=== PATIENT | female | born 1975 | race Caucasian/White ===

== ENCOUNTER 2018-07-13 19:46 | Inpatient (IN) | payer BC, SELFPAY ==
[2018-07-13 19:49] VITALS: BP 161/91; PULSE 128; PULSE 130; RESP 19; TEMP 36.7; O2SAT 95; BMI 20.5
[2018-07-13 19:53] VITALS: BP 161/91; PULSE 130; RESP 19; TEMP 36.7; O2SAT 95
--- NOTE | 2018-07-13 21:10 | CT_ITS ---
STUDY: CT SOFT TISSUE NECK WITH CONTRAST REASON FOR EXAM: Female, 43 years old. Difficulty swallowing. RADIATION DOSAGE (If Supplied By Facility): CTDIvol = ( 16.53 ) mGy, DLP = ( 499.58 ) mGycm TECHNIQUE: The patient was scanned in a multi-detector CT scanner. High resolution transaxial imaging was performed following intravenous administration of Isovue 300 100ML IV. Sagittal and coronal images were reconstructed. Individualized dose optimization techniques were used for this CT. COMPARISON: None. FINDINGS: Normal bilateral parotid glands. Normal bilateral tank pumper panelboard spaces. Normal bilateral parapharyngeal spaces. Normal bilateral carotid spaces. Normal bilateral sublingual and submandibular glands and spaces. Normal visualized nasopharynx. Normal retropharyngeal space. Normal perivertebral space. There is prominence of the right faucial tonsil, which contains a 1.1 x 0.66 x 1.1 cm fluid density mass. The visualized tongue, tongue base and oropharynx are normal. The visualized cervical lymph nodes (levels I-) are within normal size limits, and maintain normal morphology. There is no abnormal contrast enhancement. There is soft tissue swelling extending downward from the right tonsil into the periglottic soft tissues and into the epiglottis which appears enlarged and markedly thickened. There is low-attenuation extending downward into the soft tissues in the second abscess cannot be ruled out. Normal left vallecula. The hypopharynx is displaced to the left. The left pre-epiglottic and paraglottic adipose spaces are normal. There is soft tissue swelling along the right para glottic soft tissues down to and involving the anterior right area epiglottic fold. Normal visualized left aryepiglottic folds, bilateral vocal cords, and arytenoid-cricoid articulations. Normal left piriform sinus. Normal subglottic trachea. Normal bilateral lobes of the thyroid gland. Normal visualized pulmonary apices. Normal visualized paranasal sinuses. Normal visualized cervical spine. CT/Soft Tissue Neck WITH Contrast IMPRESSION: Marked soft tissue swelling extending from the right tonsil downward to the right false cord with enlargement of the epiglottis and narrowing of both the pharynx and hypopharynx. There are several low-attenuation foci within this area of swelling suggesting focal abscesses. N.B. : The above information has been verbally conveyed by Hayden Howard DO to Ederreid Mc on 07/13/2018 22:45:31 (ET). Electronically Signed: Hayden Howard DO at 22:46 EDT Tel [phone], Service support ,
[2018-07-13 21:30] LABS: Absolute Lymphocyte Count 1.38 X10^3/ul (0.83-4.51); Absolute Neutrophil Count 16.9 X10^3/uL (2.0-7.7); Basophil# 0.02 X10^3/uL; Basophil% 0.1 % (0-1); Eosinophil# 0.02 X10^3/uL; Eosinophils% 0.1 % (0-5); Hematocrit 41.8 % (37-47); Hemoglobin 14.2 g/dl (12.0-15.0); Lymphocyte # 1.38 X10^3/ul (4.0); Mean Corpuscular Hgb 31.4 pg (27.0-32.0); Mean Corpuscular Volume 92.5 fL (81-99); Mean Platelet Vol. 9.4 fl (6.2-12.0); Monocyte% 6.1 % (0-10); Neutrophil # 16.92 X10^3/uL (2.7-7.7); Neutrophil % 86.4 % (47-70); Platelet Count 219 K/mm3 (150-450); RBC Distribution Width CV 12.5 % (11.6-14.6); RBC Distribution Width SD 41.7 fl (35.1-43.9); Red Blood Count 4.52 M/mm3 (4.2-5.4); White Blood Count 19.6 K/mm3 (4.4-11.0)
[2018-07-13 21:31] LABS: POSITIVE COUNT NO; POSITIVE DIFFERENTIAL NO; POSITIVE MORPHOLOGY NO
[2018-07-13 21:43] LABS: Anion Gap 7 (5-15); BUN 11 mg/dL (7-18); BUN/Creat Ratio 16.3 RATIO (10-20); Chloride 105 mmol/L (98-107); Creatinine, Serum 0.67 mg/dL (0.55-1.02); EST Glomerular Filtration Rate 101 mL/min (>60); Est Glom Filt Rate - Afr Amer 122 mL/min (>60); Estimated Creatinine Clearance 108.97 ml/min; Glucose 97 mg/dL (74-106); Potassium 3.5 mmol/L (3.5-5.1); Sodium Level 138 mmol/L (136-145)
[2018-07-13] MEDS: 0.9% Normal Saline 1,000 ML 1000 ML IV (23:00)
[2018-07-13 23:31] VITALS: BP 146/89; PULSE 106; RESP 18; O2SAT 98
--- NOTE | 2018-07-13 23:57 | ED.VISSUMM ---
- ER Visit Summary Date of Service: 07/13/18 Chief Complaint: Sore throat History of Present Illness: The patient is a 43 F who presents with a sore throat that began yesterday. Patient states her pain is worse with swallowing. Patient admits to subjective chills but denies any fevers. Patient admits to some myalgias. Patient denies any headache, sinus pressure, nausea, vomiting, chest pain, shortness of breath. Patient went to an urgent care tonight and was referred to the emergency department for possible peritonsillar abscess. Physical Examination: Vital signs are stable except for mild tachycardia of 128. Patient is afebrile. Patient is in no acute distress. Oral mucosa is pink and moist. Oropharynx is mildly erythematous on the right. The uvula is midline. Airway is patent. Neck is supple. There is some right anterior cervical lymphadenopathy and tenderness. Heart was regular and tachycardic. Lungs are clear and equal bilaterally. Abdomen is soft nontender. Cranial nerves II through XII are intact. There are no focal motor or sensory deficits noted. Test Results: CBC showed leukocytosis of 19. Metabolic profile was within normal limits. CT scan of the soft tissue neck was obtained there is a right peritonsillar abscess with extension into the epiglottic folds and into the epiglottis. Emergency Department Course and Treatment: Patient was given IV fluids, Decadron, and Unasyn here. Case was discussed with Dr. Murphy he will be willing to see the patient in consultation. Case was discussed with Dr. Sanchez. She will admit the patient. Patient understood and was agreeable with the plan. All questions were answered. Disposition: Admit to hospital Impression: Peritonsillar abscess This note was generated with [employer] dictation software. It may contain incorrect words, spelling, and punctuation that were not noted in review of the chart prior to signing ED Disposition - Plan for ED Patient: Disposition: Acute Care Hospital [facility] Diagnosis: Peritonsillar abscess Referrals: Care Physician,No Primary [Primary Care Provider] -
--- NOTE | 2018-07-13 23:59 | HP.PCM_ITS ---
Problem List (1) Sepsis Status: Acute Qualifiers: Sepsis type: sepsis due to unspecified organism Qualified Code(s): A41.9 - Sepsis, unspecified organism (2) Peritonsillar abscess Status: Acute (3) Tobacco use Status: Chronic History of Present Illness Date of Admission: 07/13/18 Chief Complaint: Sore throat, dysphagia, fever, chills The patient is a 43 y/o F w/ PMHx: Tobacco use who presents to the [facility] ED on 07/13/18 with history of 48-hour history of progressively worsening sore throat, worsening dysphagia with body aches as well as subjective fevers and chills with decreased oral intake secondary prompting evaluation in urgent care and following recommendation to present to the ED secondary to concerns for possible tonsillitis. Workup in the ED included T 98, heart rate 128, respiratory rate 19, BP 161/91, 95% on room air, CBC with WC 19.6, hemoglobin 14.2, platelet 219 with left shift, BMP not market appearing, CT soft tissue neck with marked soft tissue swelling extending from the right tonsil downward to the false right cord with enlargement of the epiglottis and narrowing of both the pharynx and hyp opharynx with several low-attenuation foci within this area of swelling suggesting focal abscesses. In the ED patient administered Unasyn, Decadron, normal saline. ED discussed patient with ENT, Dr. Ly who noted he would evaluate the patient in the a.m. 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 Paternal History Items: Diabetes Review of Systems Constitutional: Reports: Anorexia, Chills, Fever, Malaise, Weakness, Fatigue. Denies: Weight Change HEENT: Reports: Difficulty Swallowing, Dysphasia, Sore Throat. Denies: Head Aches, Sinus Congestion, Sinus Drainage Cardiovascular: Denies: Chest Pain, Palpitations Respiratory: Denies: Cough, Shortness of breath at rest, Sputum production Gastrointestinal: Denies: Abdominal Pain, Nausea, Vomiting Genitourinary: Denies: Dysuria Musculoskeletal: Reports: Joint Pain, Muscle pain. Denies: Joint Tenderness Skin: Denies: Rash, Wounds Neurological: Denies: Numbness, Tingling, Focal weakness Psychiatric: Denies: Anxiety, Depression, Homicidal Ideations, Suicidal Ideations Hematologic/ Lymphatic: Denies: Easy Bruising, Easy Bleeding VTE Information - Inpt Only VTE Present on Admission: No VTE Mechan Device Prophylaxis: SCD's VTE Pharm Prophylaxis ordered?: No Reason prophylaxis not ordered:: Treatment Not Indicated - Holding for possible a.m. OR. Patient Problems: Active and Suspected Problems Peritonsillar abscess (Acute) Sepsis (Acute) Subjective: Seated upright in the ED bed, no acute distress, notes throat is mildly improved since initial presentation with recent ED regimen. Objective: Physical Examination: General: awake, alert, oriented x 3 and cooperative, seated upright in the ED bed in no apparent distress, fatigued appearance. Skin: normal color, turgor, no icterus, cyanosis. HEENT: AT/NC, EOMI, PERRLA, dry MM, oropharynx mildly erythematous with uvula midline and airway patent with cervical lymphadenopathy, no carotid bruits or JVD noted. Lungs: CTA bilaterally, moderate effort, mild decrease BL bases, no rales, ronchi or wheezing. Heart: Widely tachycardic with regular rhythm; no gallop, rub audible. Abdomen: soft, NTTP, ND, normal BS, no HSM. Extremities: no cyanosis, clubbing, or edema. Neurological: patient awake, alert, oriented x 3; cognitive function intact; pupils equally reactive to light and accomodation; cranial nerves II-XII grossly normal, moving all 4 extremities, no focal deficits, strength moderately to severely globally decreased secondary to acute presentation Psychiatric: affect appears fatigued, no acute evidence of depressive or anxiety feelings. - Physical Exam Vital Signs Temp Pulse Resp BP Pulse Ox 98.0 F 106 H 18 146/89 H 98 07/13/18 19:53 07/13/18 23:31 07/13/18 23:31 07/13/18 23:31 07/13/18 23:31 Oxygen Delivery Method Room Air Weight: 143 lb 8.335 oz Body Mass Index (BMI) 20.5 Laboratory Tests Past 24 Hrs 07/13/18 07/13/18 21:20 21:20 WBC 19.6 H RBC 4.52 Hgb 14.2 Hct 41.8 MCV 92.5 MCH 31.4 MCHC 34.0 RDW 12.5 RDW Differential 41.7 Plt Count 219 MPV 9.4 Immature Gran % (Auto) 0.300 Neut % (Auto) 86.4 H Lymph % (Auto) 7.0 L [place] % (Auto) 6.1 Eos % (Auto) 0.1 Baso % (Auto) 0.1 Absolute Neuts (auto) 16.9 H Absolute Lymphs (auto) 1.38 Total Counted Not Reportable Sodium 138 Potassium 3.5 Chloride 105 Carbon Dioxide 26.0 Anion Gap 7 BUN 11 Creatinine 0.67 Estim Creat Clear Calc 108.97 Est GFR (MDRD) Af Amer 122 Est GFR (MDRD) Non-Af 101 BUN/Creatinine Ratio 16.3 Glucose 97 Calcium 9.0 Assessment/Plan All Active Problems Peritonsillar abscess (Acute) Sepsis (Acute) The patient is a 43 y/o F w/ PMHx: Tobacco use who presents to the [facility] ED on 07/13/18 with history of 48-hour history of progressively worsening sore throat, worsening dysphagia with body aches as well as subjective fevers and chills with decreased oral intake secondary prompting evaluation in urgent care and following recommendation to present to the ED secondary to concerns for possible tonsillitis. (1) Acute sepsis secondary to acute peritonsillar abscess with pharynx and hypopharynx narrowing: orkup in the ED included T 98, heart rate 128, respiratory rate 19, BP 161/91, 95% on room air, CBC with WBC 19.6, hemoglobin 14.2, platelet 219 with left shift, BMP not market appearing, CT soft tissue neck with marked soft tissue swelling extending from the right tonsil downward to the false right cord with enlargement of the epiglottis and narrowing of both the pharynx and hypopharynx with several low-attenuation foci within this area of swelling suggesting focal abscesses. Given notable airway findings to be cautious will admit to the ICU, maintain n.p.o. status, continue aggressive hydration, IV PPI, continue Decadron regimen, continue IV Unasyn as well as IV vancomycin, pending ENT evaluation in a.m., PRN pain and antiemetic regimen, lactic acid requested and pending. (2) Tobacco Abuse: Encouraged cessation, inpatient consultation per RT, NR if desired. (3) GERD: Famotidine. (4) DVT prophylaxis: SCDs, chemoprophylaxis given planned a.m. possible operative intervention needs. Code Visit Inpatient E&M: 08323 Init Hosp L3
[2018-07-14] VITALS (23 sets, daily range): BP systolic 100–147; BP diastolic 54–99; PULSE 83–116; RESP 11–24; TEMP 36.6–37.1; O2SAT 96–98; BMI 20.3; BMI 20.4
--- NOTE | 2018-07-14 00:01 | ED.DCSUM_ITS ---
- ER Visit Summary Date of Service: 07/13/18 Chief Complaint: Sore throat History of Present Illness: The patient is a 43 F who presents with a sore throat that began yesterday. Patient states her pain is worse with swallowing. Patient admits to subjective chills but denies any fevers. Patient admits to some myalgias. Patient denies any headache, sinus pressure, nausea, vomiting, chest pain, shortness of breath. Patient went to an urgent care tonight and was referred to the emergency department for possible peritonsillar abscess. Physical Examination: Vital signs are stable except for mild tachycardia of 128. Patient is afebrile. Patient is in no acute distress. Oral mucosa is pink and moist. Oropharynx is mildly erythematous on the right. The uvula is midline. Airway is patent. Neck is supple. There is some right anterior cervical lymphadenopathy and tenderness. Heart was regular and tachycardic. Lungs are clear and equal bilaterally. Abdomen is soft nontender. Cranial nerves II through XII are intact. There are no focal motor or sensory deficits noted. Test Results: CBC showed leukocytosis of 19. Metabolic profile was within normal limits. CT scan of the soft tissue neck was obtained there is a right peritonsillar abscess with extension into the epiglottic folds and into the epiglottis. Emergency Department Course and Treatment: Patient was given IV fluids, Decadron, and Unasyn here. Case was discussed with Dr. Murphy he will be willing to see the patient in consultation. Case was discussed with Dr. Sanchez. She will admit the patient. Patient understood and was agreeable with the plan. All questions were answered. Disposition: Admit to hospital Impression: Peritonsillar abscess This note was generated with [employer] dictation software. It may contain incorrect words, spelling, and punctuation that were not noted in review of the chart prior to signing ED Disposition - Plan for ED Patient: Disposition: Acute Care Hospital [facility] Diagnosis: Peritonsillar abscess Referrals: Care Physician,No Primary [Primary Care Provider] -
--- NOTE | 2018-07-14 00:39 | ED.RN ---
QUESTIONED DR BLANK REGKOSTASING A SEPTIC WORK UP AND HE STATED SHE DID NOT NEED IT.
[2018-07-14 01:38] LABS: International Normalized Ratio 1.1; Partial Thromboplast Time 25.8 Seconds (24.1-36.2); Prothrombin Time (Protime)PT. 13.6 SECONDS (11.7-14.9)
[2018-07-14 01:52] LABS: Lactic Acid 0.7 mmol/L (0.4-2.0)
[2018-07-14] MEDS: HYDROcodone Bitartrate/Apap 5/325 Tablet PO ×2 (02:06→08:31)
[2018-07-14] MEDS: 0.9% Normal Saline 1,000 ML 150 ML IV (02:07)
[2018-07-14] MEDS: 0.9% NaCl Peripheral Flush Adult/Peds IV ×4 (02:07→22:52)
[2018-07-14] MEDS: Vancomycin IV 1,000 MG/200 ML BAG 200 MG IV (02:07)
--- NOTE | 2018-07-14 02:30 | PCM.RX.CS ---
Consult Pharmacy has been consulted to manage selected antiobiotic: Vancomycin Type of Consult: New start Labs: Sodium 138 mmol/L (136-145) 07/13/18 21:20 Potassium 3.5 mmol/L (3.5-5.1) 07/13/18 21:20 Chloride 105 mmol/L (98-107) 07/13/18 21:20 Carbon Dioxide 26.0 mmol/L (21.0-32.0) 07/13/18 21:20 Anion Gap 7 (5-15) 07/13/18 21:20 BUN 11 mg/dL (7-18) 07/13/18 21:20 Creatinine 0.67 mg/dL (0.55-1.02) 07/13/18 21:20 Est GFR (MDRD) Af Amer 122 mL/min (>60) 07/13/18 21:20 Est GFR (MDRD) Non-Af 101 mL/min (>60) 07/13/18 21:20 BUN/Creatinine Ratio 16.3 RATIO (10-20) 07/13/18 21:20 Glucose 97 mg/dL (74-106) 07/13/18 21:20 Goal Trough: 10-15 mcg/mL Pharmacy Plan for Drug Dosing: Pharmacy Service will continue to monitor and adjust dosing as required. Medications Vancomycin HCl (Vancomycin) 1,000 mg in 200 mls @ 200 mls/hr IV X1 ONE Stop: 07/14/18 02:59 Last Admin: 07/14/18 02:07 Dose: 200 mls/hr Vancomycin HCl (Vancomycin) 1,000 mg in 200 mls @ 200 mls/hr IV Q12H MAIRA Follow-Up Labs: Trough Vancomycin Labs to be done on [date and time ordered]: 09/14 @ 1400
[2018-07-14 05:33] LABS: Absolute Lymphocyte Count 0.74 X10^3/ul (0.83-4.51); Basophil# 0.01 X10^3/uL; Hemoglobin 12.5 g/dl (12.0-15.0); Lymphocyte # 0.74 X10^3/ul (4.0); Mean Corp Hgb Conc 33.8 g/gl (32-36); Mean Corpuscular Hgb 31.3 pg (27.0-32.0); Mean Corpuscular Volume 92.7 fL (81-99); Mean Platelet Vol. 9.7 fl (6.2-12.0); Monocyte# 0.66 X10^3/uL; Monocyte% 2.7 % (0-10); Neutrophil # 22.95 X10^3/uL (2.7-7.7); Neutrophil % 93.8 % (47-70); Platelet Count 202 K/mm3 (150-450); RBC Distribution Width CV 12.4 % (11.6-14.6); RBC Distribution Width SD 41.5 fl (35.1-43.9); Red Blood Count 3.99 M/mm3 (4.2-5.4); White Blood Count 24.5 K/mm3 (4.4-11.0)
[2018-07-14 05:35] LABS: Anion Gap 8 (5-15); BUN 8 mg/dL (7-18); BUN/Creat Ratio 14.7 RATIO (10-20); Calcium,Total 7.8 mg/dL (8.5-10.1); Chloride 109 mmol/L (98-107); Creatinine, Serum 0.54 mg/dL (0.55-1.02); EST Glomerular Filtration Rate 128 mL/min (>60); Est Glom Filt Rate - Afr Amer 155 mL/min (>60); Estimated Creatinine Clearance 133.75 ml/min; Glucose 134 mg/dL (74-106); Potassium 3.7 mmol/L (3.5-5.1); Sodium Level 140 mmol/L (136-145)
[2018-07-14 05:37] LABS: Differential Indicated SCAN CRITERIA MET; POSITIVE COUNT NO; POSITIVE DIFFERENTIAL YES; POSITIVE MORPHOLOGY NO
--- NOTE | 2018-07-14 07:09 | PCM.CON.CC ---
Reason for Consult Date of Consultation: 07/14/18 Reason for Consultation: Right peritonsillar abscess History of Present Illness: The patient is a 43-year-old female, with a history as outlined below, who presented to the emergency department on July 13 with complaints of odynophagia. On presentation to the emergency department, the patient was noted to be afebrile, tachycardic and hypertensive. Laboratory evaluation revealed an elevated white blood cell count to 20,000. Coagulation profile was within normal limits. Chemistry profile was unremarkable. Lactic acid was within normal limits. CT soft tissue neck revealed marked soft tissue swelling extending from the right tonsil downward to the right false cord with enlargement of the epiglottis and narrowing of both the pharynx and hypopharynx. The patient was given supplemental IV fluids, Decadron and antibiotics. ENT was contacted and will evaluate the patient. She was subsequently admitted to the medical intensive care unit for close monitoring. This morning, the patient reported the sensation of foul tasting fluid in the back of her throat, raising the suspicion that the patient's abscess had ruptured. The patient was evaluated by ENT at the bedside this morning. They indicated no concerns over the patient's airway. They were okay with us advancing her diet. 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 Paternal History Items: Diabetes Review of Systems Constitutional: Denies: Chills, Fever Eyes: Denies: Blurred vision, Double vision HEENT: Reports: Difficulty Swallowing, Sore Throat Cardiovascular: Denies: Chest Pain, Palpitations Respiratory: Denies: Cough, Shortness of breath at rest, Sputum production Gastrointestinal: Denies: Abdominal Pain, Nausea, Vomiting Genitourinary: Denies: Dysuria Musculoskeletal: Denies: Joint Pain, Joint Tenderness Skin: Denies: Rash, Wounds Neurological: Denies: Numbness, Tingling, Focal weakness Psychiatric: Denies: Anxiety, Depression, Homicidal Ideations, Suicidal Ideations Hematologic/ Lymphatic: Denies: Easy Bruising, Easy Bleeding Patient Problems: Active and Suspected Problems Peritonsillar abscess (Acute) Sepsis (Acute) Objective: The patient's most recent lab work, culture data and imaging studies have all been personally reviewed. - Physical Exam General: Alert, Oriented x3, Cooperative, No apparent distress HEENT: Atraumatic, PERRLA, Normocephalic, - - Patent airway Oral: No Gingival or Mucosal Lesions/ Ulcerations Neck: Supple, No Nodes, Trachea Midline Lungs: Normal air movement, No rhonchi, No wheeze, No rales Cardiovascular: Regular rate, Regular Rhythm, Normal S1, Normal S2, No murmurs Abdomen: Bowel Sounds Present, Soft, Non Tender Extremities: No clubbing, No cyanosis, No edema Skin: No breakdown Musculoskeletal: No Tenderness to Palpation of Joints or Extremities, No Muscle Wasting Neurological: Neuro grossly intact Psych/Mental Status: Normal Affect, Appropriate Vital Signs Temp Pulse Resp BP Pulse Ox 36.6 C 89 24 H 105/61 97 07/14/18 04:00 07/14/18 06:00 07/14/18 06:00 07/14/18 06:00 07/14/18 06:00 Oxygen Delivery Method Room Air Weight: 141 lb 15.643 oz Body Mass Index (BMI) 20.3 Intake and Output for Last 24 Hours 07/12/18 07/13/18 07/14/18 23:59 23:59 23:59 Intake Total 870 / 870 Output Total 450 / 450 Balance 420 / 420 Laboratory Tests Past 24 Hrs 07/13/18 07/13/18 07/14/18 21:20 21:20 01:20 WBC 19.6 H RBC 4.52 Hgb 14.2 Hct 41.8 MCV 92.5 MCH 31.4 MCHC 34.0 RDW 12.5 RDW Differential 41.7 Plt Count 219 MPV 9.4 Immature Gran % (Auto) 0.300 Neut % (Auto) 86.4 H Lymph % (Auto) 7.0 L [place] % (Auto) 6.1 Eos % (Auto) 0.1 Baso % (Auto) 0.1 Absolute Neuts (auto) 16.9 H Absolute Lymphs (auto) 1.38 Total Counted Not Reportable PT 13.6 INR 1.1 APTT 25.8 Sodium 138 Potassium 3.5 Chloride 105 Carbon Dioxide 26.0 Anion Gap 7 BUN 11 Creatinine 0.67 Estim Creat Clear Calc 108.97 Est GFR (MDRD) Af Amer 122 Est GFR (MDRD) Non-Af 101 BUN/Creatinine Ratio 16.3 Glucose 97 Lactic Acid Calcium 9.0 07/14/18 07/14/18 07/14/18 01:20 05:10 05:10 WBC 24.5 H RBC 3.99 L Hgb 12.5 Hct 37.0 MCV 92.7 MCH 31.3 MCHC 33.8 RDW 12.4 RDW Differential 41.5 Plt Count 202 MPV 9.7 Immature Gran % (Auto) 0.500 Neut % (Auto) 93.8 H Lymph % (Auto) 3.0 L [place] % (Auto) 2.7 Eos % (Auto) 0.0 Baso % (Auto) 0.0 Absolute Neuts (auto) 23.0 H Absolute Lymphs (auto) 0.74 L Total Counted Not Reportable PT INR APTT Sodium 140 Potassium 3.7 Chloride 109 H Carbon Dioxide 23.0 Anion Gap 8 BUN 8 Creatinine 0.54 L Estim Creat Clear Calc 133.75 Est GFR (MDRD) Af Amer 155 Est GFR (MDRD) Non-Af 128 BUN/Creatinine Ratio 14.7 Glucose 134 H Lactic Acid 0.7 Calcium 7.8 L Clinical Impression(s) from Imaging Studies Soft Tissue Neck CT 07/13/18 21:10 IMPRESSION: Marked soft tissue swelling extending from the right tonsil downward to the right false cord with enlargement of the epiglottis and narrowing of both the pharynx and hypopharynx. There are several low-attenuation foci within this area of swelling suggesting focal abscesses. N.B. : The above information has been verbally conveyed by Hayden Howard DO to Eder Mc on 07/13/2018 22:45:31 (ET). Electronically Signed: Hayden Howard DO at 22:46 EDT Tel [phone], Service support , ADDENDUM: 07/13/18 4125 IMPRESSION: Marked soft tissue swelling extending from the right tonsil downward to the right false cord with enlargement of the epiglottis and narrowing of both the pharynx and hypopharynx. There are several low-attenuation foci within this area of swelling suggesting focal abscesses. N.B. : The above information has been verbally conveyed by Hayden Howard DO to Eder Mc on 07/13/2018 22:45:31 (ET). Electronically Signed: Hayden Howard DO at 22:46 EDT Tel [phone], Service support , Assessment/Plan Active and Suspected Problems Peritonsillar abscess (Acute) Sepsis (Acute) RECOMMENDATIONS: 1. The patient can likely be transitioned to p.o. clindamycin 2. Continue current pain control regimen. IMPRESSIONS: 1. Sepsis secondary to peritonsillar abscess The patient has been clinically stable overnight. The patient did receive supplemental IV fluids and antibiotics. She was never hemodynamically unstable. The patient's airway is intact and patent. ENT is following. The patient's antibiotic course can likely be transitioned to p.o. clindamycin. Diet can be advanced per ENT. 2. History of tobacco dependency/GERD Complicates care, management, recovery and prognosis. Nicotine replacement therapy can be offered while the patient is admitted to the hospital. This note was generated with [employer] dictation software. It may contain incorrect words, spelling, and punctuation that were not noted in checking the note before signing. DISPOSITION: The patient is medically stable from my perspective for transfer out of the intensive care unit. Given her lack of ICU needs, will sign off. Please call with any additional questions. Code Visit Inpatient E&M: 91904 Init Hosp L2
--- NOTE | 2018-07-14 07:17 | CON.PCM_ITS ---
Reason for Consult Date of Consultation: 07/14/18 Reason for Consultation: Right peritonsillar abscess History of Present Illness: The patient is a 43-year-old female, with a history as outlined below, who presented to the emergency department on July 13 with complaints of odynophagia. On presentation to the emergency department, the patient was noted to be afebrile, tachycardic and hypertensive. Laboratory evaluation revealed an elevated white blood cell count to 20,000. Coagulation profile was within normal limits. Chemistry profile was unremarkable. Lactic acid was within normal limits. CT soft tissue neck revealed marked soft tissue swelling extending from the right tonsil downward to the right false cord with enlargement of the epiglottis and narrowing of both the pharynx and hypopharynx. The patient was given supplemental IV fluids, Decadron and antibiotics. ENT was contacted and will evaluate the patient. She was subsequently admitted to the medical intensive care unit for close monitoring. This morning, the patient reported the sensation of foul tasting fluid in the back of her throat, raising the suspicion that the patient's abscess had ruptured. The patient was evaluated by ENT at the bedside this morning. They indicated no concerns over the patient's airway. They were okay with us advancing her diet. 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 Paternal History Items: Diabetes Review of Systems Constitutional: Denies: Chills, Fever Eyes: Denies: Blurred vision, Double vision HEENT: Reports: Difficulty Swallowing, Sore Throat Cardiovascular: Denies: Chest Pain, Palpitations Respiratory: Denies: Cough, Shortness of breath at rest, Sputum production Gastrointestinal: Denies: Abdominal Pain, Nausea, Vomiting Genitourinary: Denies: Dysuria Musculoskeletal: Denies: Joint Pain, Joint Tenderness Skin: Denies: Rash, Wounds Neurological: Denies: Numbness, Tingling, Focal weakness Psychiatric: Denies: Anxiety, Depression, Homicidal Ideations, Suicidal Ideations Hematologic/ Lymphatic: Denies: Easy Bruising, Easy Bleeding Patient Problems: Active and Suspected Problems Peritonsillar abscess (Acute) Sepsis (Acute) Objective: The patient's most recent lab work, culture data and imaging studies have all been personally reviewed. - Physical Exam General: Alert, Oriented x3, Cooperative, No apparent distress HEENT: Atraumatic, PERRLA, Normocephalic, - - Patent airway Oral: No Gingival or Mucosal Lesions/ Ulcerations Neck: Supple, No Nodes, Trachea Midline Lungs: Normal air movement, No rhonchi, No wheeze, No rales Cardiovascular: Regular rate, Regular Rhythm, Normal S1, Normal S2, No murmurs Abdomen: Bowel Sounds Present, Soft, Non Tender Extremities: No clubbing, No cyanosis, No edema Skin: No breakdown Musculoskeletal: No Tenderness to Palpation of Joints or Extremities, No Muscle Wasting Neurological: Neuro grossly intact Psych/Mental Status: Normal Affect, Appropriate Vital Signs Temp Pulse Resp BP Pulse Ox 36.6 C 89 24 H 105/61 97 07/14/18 04:00 07/14/18 06:00 07/14/18 06:00 07/14/18 06:00 07/14/18 06:00 Oxygen Delivery Method Room Air Weight: 141 lb 15.643 oz Body Mass Index (BMI) 20.3 Intake and Output for Last 24 Hours 07/12/18 07/13/18 07/14/18 23:59 23:59 23:59 Intake Total 870 / 870 Output Total 450 / 450 Balance 420 / 420 Laboratory Tests Past 24 Hrs 07/13/18 07/13/18 07/14/18 21:20 21:20 01:20 WBC 19.6 H RBC 4.52 Hgb 14.2 Hct 41.8 MCV 92.5 MCH 31.4 MCHC 34.0 RDW 12.5 RDW Differential 41.7 Plt Count 219 MPV 9.4 Immature Gran % (Auto) 0.300 Neut % (Auto) 86.4 H Lymph % (Auto) 7.0 L [place] % (Auto) 6.1 Eos % (Auto) 0.1 Baso % (Auto) 0.1 Absolute Neuts (auto) 16.9 H Absolute Lymphs (auto) 1.38 Total Counted Not Reportable PT 13.6 INR 1.1 APTT 25.8 Sodium 138 Potassium 3.5 Chloride 105 Carbon Dioxide 26.0 Anion Gap 7 BUN 11 Creatinine 0.67 Estim Creat Clear Calc 108.97 Est GFR (MDRD) Af Amer 122 Est GFR (MDRD) Non-Af 101 BUN/Creatinine Ratio 16.3 Glucose 97 Lactic Acid Calcium 9.0 07/14/18 07/14/18 07/14/18 01:20 05:10 05:10 WBC 24.5 H RBC 3.99 L Hgb 12.5 Hct 37.0 MCV 92.7 MCH 31.3 MCHC 33.8 RDW 12.4 RDW Differential 41.5 Plt Count 202 MPV 9.7 Immature Gran % (Auto) 0.500 Neut % (Auto) 93.8 H Lymph % (Auto) 3.0 L [place] % (Auto) 2.7 Eos % (Auto) 0.0 Baso % (Auto) 0.0 Absolute Neuts (auto) 23.0 H Absolute Lymphs (auto) 0.74 L Total Counted Not Reportable PT INR APTT Sodium 140 Potassium 3.7 Chloride 109 H Carbon Dioxide 23.0 Anion Gap 8 BUN 8 Creatinine 0.54 L Estim Creat Clear Calc 133.75 Est GFR (MDRD) Af Amer 155 Est GFR (MDRD) Non-Af 128 BUN/Creatinine Ratio 14.7 Glucose 134 H Lactic Acid 0.7 Calcium 7.8 L Clinical Impression(s) from Imaging Studies Soft Tissue Neck CT 07/13/18 21:10 IMPRESSION: Marked soft tissue swelling extending from the right tonsil downward to the right false cord with enlargement of the epiglottis and narrowing of both the pharynx and hypopharynx. There are several low-attenuation foci within this area of swelling suggesting focal abscesses. N.B. : The above information has been verbally conveyed by Hayden Howard DO to Eder Mc on 07/13/2018 22:45:31 (ET). Electronically Signed: Hayden Howard DO at 22:46 EDT Tel [phone], Service support , ADDENDUM: 07/13/18 [id number] IMPRESSION: Marked soft tissue swelling extending from the right tonsil downward to the right false cord with enlargement of the epiglottis and narrowing of both the pharynx and hypopharynx. There are several low-attenuation foci within this area of swelling suggesting focal abscesses. N.B. : The above information has been verbally conveyed by Hayden Howard DO to Eder Mc on 07/13/2018 22:45:31 (ET). Electronically Signed: Hayden Howard DO at 22:46 EDT Tel [phone], Service support , Assessment/Plan Active and Suspected Problems Peritonsillar abscess (Acute) Sepsis (Acute) RECOMMENDATIONS: 1. The patient can likely be transitioned to p.o. clindamycin 2. Continue current pain control regimen. IMPRESSIONS: 1. Sepsis secondary to peritonsillar abscess The patient has been clinically stable overnight. The patient did receive supplemental IV fluids and antibiotics. She was never hemodynamically unstable. The patient's airway is intact and patent. ENT is following. The patient's antibiotic course can likely be transitioned to p.o. clindamycin. Diet can be advanced per ENT. 2. History of tobacco dependency/GERD Complicates care, management, recovery and prognosis. Nicotine replacement therapy can be offered while the patient is admitted to the hospital. This note was generated with [employer] dictation software. It may contain incorrect words, spelling, and punctuation that were not noted in checking the note before signing. DISPOSITION: The patient is medically stable from my perspective for transfer out of the intensive care unit. Given her lack of ICU needs, will sign off. Please call with any additional questions. Code Visit Inpatient E&M: 11342 Init Hosp L2
--- NOTE | 2018-07-14 07:53 | PCM.PROGNOTE ---
Patient Problems: Active and Suspected Problems Peritonsillar abscess (Acute) Sepsis (Acute) Subjective: The patient is a 43-year-old female with a past medical history of tobacco dependence who presented to the emergency department at [facility] on 07/13/2018 complaining of a 48-hour history of worsening sore throat, dysphagia, myalgias, fevers, chills and poor appetite. She went to an urgent care and was advised to go to the emergency department due to concern for possible tonsillitis. Vital signs in the emergency department were temperature 98 ?F, pulse rate 128, blood pressure 161/91, respiratory rate 19 and she was 95-98% saturated on room air. White blood cell count was elevated at 19.6 with a left shift. BMP was unremarkable. PT and PTT were within normal limits. Lactic acid was 0.7. A CT scan of the soft tissues of the neck showed marked soft tissue swelling extending from the right tonsil downward to the right false vocal cord with enlargement of the epiglottis and narrowing of both the pharynx and hypopharynx. There were several low-attenuation foci within the area suggesting focal abscesses. She received Unasyn, Decadron and IV fluids in the emergency department and consultation was ordered with Dr. Ly. She was admitted to the ICU and was continued on Decadron and Unasyn. Vanco was added to the drug regimen. Afebrile since admission Tachycardia has resolved and current heart rate is 88 Blood pressure is currently within normal limits. She is maintaining an oxygen saturation of 95-98% on room air with a respiratory rate of 18-19. LAB: the WBC count is 24.5 today with persistent left shift...now on steroids. HGB and plts are still WNL. MICRO: no cultures were sent Denies shortness of breath, difficulty swallowing, drooling, cough, abdominal pain, nausea. She does complain of a sore throat and would prefer taking a nonsteroidal anti-inflammatory drug rather than [place] which makes her sleepy. Objective: PHYSICAL EXAM: GENERAL: alert, oriented X 3, Cooperative, NAD ORAL: dry mucosa, no mucosal lesions, positive erythema posterior pharynx with no exudate, knowing of the uvula, floor the mouth is soft, airway appears open NECK: No JVD, supple, trachea midline LUNGS: CTA, symmetric chest expansion, not tachypneic, no conversational dyspnea, no labored respirations, no wheezing, no rales HEART: RRR, Normal S1 and S2, no rub, no gallop, no murmur ABDOMEN: soft, NT, ND, BS present, no guarding with palpation EXTREMITIES: no edema, no cyanosis, no calf tenderness SKIN: No rashes, no breakdown NEUROLOGIC: no focal neurologic deficits PSYCH: appropriate, normal affect, pleasant - Physical Exam Vital Signs Temp Pulse Resp BP Pulse Ox 97.9 F 88 22 H 100/54 L 97 07/14/18 04:00 07/14/18 07:37 07/14/18 07:37 07/14/18 07:37 07/14/18 07:37 Oxygen Delivery Method Room Air Weight: 141 lb 15.643 oz Body Mass Index (BMI) 20.3 Intake and Output for Last 24 Hours 07/12/18 07/13/18 07/14/18 23:59 23:59 23:59 Intake Total 870 / 870 Output Total 450 / 450 Balance 420 / 420 Laboratory Tests Past 24 Hrs 07/13/18 07/13/18 07/14/18 21:20 21:20 01:20 WBC 19.6 H RBC 4.52 Hgb 14.2 Hct 41.8 MCV 92.5 MCH 31.4 MCHC 34.0 RDW 12.5 RDW Differential 41.7 Plt Count 219 MPV 9.4 Immature Gran % (Auto) 0.300 Neut % (Auto) 86.4 H Lymph % (Auto) 7.0 L [place] % (Auto) 6.1 Eos % (Auto) 0.1 Baso % (Auto) 0.1 Absolute Neuts (auto) 16.9 H Absolute Lymphs (auto) 1.38 Total Counted Not Reportable PT 13.6 INR 1.1 APTT 25.8 Sodium 138 Potassium 3.5 Chloride 105 Carbon Dioxide 26.0 Anion Gap 7 BUN 11 Creatinine 0.67 Estim Creat Clear Calc 108.97 Est GFR (MDRD) Af Amer 122 Est GFR (MDRD) Non-Af 101 BUN/Creatinine Ratio 16.3 Glucose 97 Lactic Acid Calcium 9.0 07/14/18 07/14/18 07/14/18 01:20 05:10 05:10 WBC 24.5 H RBC 3.99 L Hgb 12.5 Hct 37.0 MCV 92.7 MCH 31.3 MCHC 33.8 RDW 12.4 RDW Differential 41.5 Plt Count 202 MPV 9.7 Immature Gran % (Auto) 0.500 Neut % (Auto) 93.8 H Lymph % (Auto) 3.0 L [place] % (Auto) 2.7 Eos % (Auto) 0.0 Baso % (Auto) 0.0 Absolute Neuts (auto) 23.0 H Absolute Lymphs (auto) 0.74 L Total Counted Not Reportable PT INR APTT Sodium 140 Potassium 3.7 Chloride 109 H Carbon Dioxide 23.0 Anion Gap 8 BUN 8 Creatinine 0.54 L Estim Creat Clear Calc 133.75 Est GFR (MDRD) Af Amer 155 Est GFR (MDRD) Non-Af 128 BUN/Creatinine Ratio 14.7 Glucose 134 H Lactic Acid 0.7 Calcium 7.8 L Medical Necessity - Tobacco Use Smoking Status: Current every day smoker Tobacco Use: Cigarettes Assessment/Plan All Active Problems Peritonsillar abscess (Acute) Sepsis (Acute) Impressions 1. Right peritonsillar abscess- popped through the night and patient had a foul taste in her mouth....no obvious abscess now. Transition from Unasyn to Augmentin. Dr. Ly will do a laryngoscopy later this morning 2. Tobacco dependence-smoking cessation was encouraged 3. GERD-continue famotidine Probable discharge in the a.m. Transfer to [place] Code Visit Inpatient E&M: 06412 Subs Hosp L2
[2018-07-14] MEDS: Dext 5%-0.45% NS 1,000 ML 125 ML IV (08:01)
[2018-07-14 08:26] LABS: AST(SGOT) 14 U/L (15-37); Alanine Aminotransfer ALT/SGPT 21 U/L (13-56); Albumin, Serum 3.3 g/dL (3.2-5.0); Alkaline Phosphatase 37 U/L (45-117); Bilirubin, Direct 0.14 mg/dL (0.00-0.30); Globulin 3.4 g/dL (2.2-4.2); Protein, Total 6.7 g/dL (6.4-8.2)
[2018-07-14 10:24] LABS: M R Staph aureus DNA By PCR Negative (Negative); Probe Check PASS; Specimen Processing Control PASS
--- NOTE | 2018-07-14 12:05 | CON.PCM_ITS ---
Problem List (1) Peritonsillar abscess Status: Acute Reason for Consult Date of Consultation: 07/14/18 History of Present Illness: The patient is a 43 year old F with a several day history of worsening sore throat. she presented in the ED last night where she received IV antibiotics and decadron; CT demonstrated a 1cm right peritonsillar abscess with tissue edema inferior to the level of the ipsilateral supraglottis. no glottic involvement. the patient states she feels dramatically better today after she had an acute foul taste in her mouth. she also notes that any voice changes are gone. no dyspnea/dysphagia. odynophagia improving. 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 Paternal History Items: Diabetes Review of Systems Constitutional: Denies: Chills, Fever, Weight Change HEENT: Denies: Head Aches, Sinus Congestion, Sinus Drainage Cardiovascular: Denies: Chest Pain, Palpitations Gastrointestinal: Denies: Abdominal Pain, Nausea, Vomiting Musculoskeletal: Denies: Joint Pain, Joint Tenderness Patient Problems: Active and Suspected Problems Peritonsillar abscess (Acute) Sepsis (Acute) - Physical Exam General: Alert, Oriented x3, Cooperative Oral: - - no pharyngeal edema, uvula midline Neck: - - no lymphadenopathy Lungs: - - no stridor Vital Signs Temp Pulse Resp BP Pulse Ox 98.8 F 99 15 122/65 H 97 07/14/18 08:58 07/14/18 09:00 07/14/18 09:00 07/14/18 09:00 07/14/18 09:00 Oxygen Delivery Method Room Air Weight: 64.4 kg Body Mass Index (BMI) 20.3 Intake and Output for Last 24 Hours 07/12/18 07/13/18 07/14/18 23:59 23:59 23:59 Intake Total 870 / 870 Output Total 450 / 450 Balance 420 / 420 Laboratory Tests Past 24 Hrs 07/13/18 07/13/18 07/14/18 21:20 21:20 01:20 WBC 19.6 H RBC 4.52 Hgb 14.2 Hct 41.8 MCV 92.5 MCH 31.4 MCHC 34.0 RDW 12.5 RDW Differential 41.7 Plt Count 219 MPV 9.4 Immature Gran % (Auto) 0.300 Neut % (Auto) 86.4 H Lymph % (Auto) 7.0 L [place] % (Auto) 6.1 Eos % (Auto) 0.1 Baso % (Auto) 0.1 Absolute Neuts (auto) 16.9 H Absolute Lymphs (auto) 1.38 Total Counted Not Reportable PT 13.6 INR 1.1 APTT 25.8 Sodium 138 Potassium 3.5 Chloride 105 Carbon Dioxide 26.0 Anion Gap 7 BUN 11 Creatinine 0.67 Estim Creat Clear Calc 108.97 Est GFR (MDRD) Af Amer 122 Est GFR (MDRD) Non-Af 101 BUN/Creatinine Ratio 16.3 Glucose 97 Lactic Acid Calcium 9.0 Total Bilirubin Direct Bilirubin AST ALT Alkaline Phosphatase Total Protein Albumin Globulin MRSA (PCR) 07/14/18 07/14/18 07/14/18 01:20 05:10 05:10 WBC 24.5 H RBC 3.99 L Hgb 12.5 Hct 37.0 MCV 92.7 MCH 31.3 MCHC 33.8 RDW 12.4 RDW Differential 41.5 Plt Count 202 MPV 9.7 Immature Gran % (Auto) 0.500 Neut % (Auto) 93.8 H Lymph % (Auto) 3.0 L [place] % (Auto) 2.7 Eos % (Auto) 0.0 Baso % (Auto) 0.0 Absolute Neuts (auto) 23.0 H Absolute Lymphs (auto) 0.74 L Total Counted Not Reportable PT INR APTT Sodium 140 Potassium 3.7 Chloride 109 H Carbon Dioxide 23.0 Anion Gap 8 BUN 8 Creatinine 0.54 L Estim Creat Clear Calc 133.75 Est GFR (MDRD) Af Amer 155 Est GFR (MDRD) Non-Af 128 BUN/Creatinine Ratio 14.7 Glucose 134 H Lactic Acid 0.7 Calcium 7.8 L Total Bilirubin Direct Bilirubin AST ALT Alkaline Phosphatase Total Protein Albumin Globulin MRSA (PCR) 07/14/18 07/14/18 05:10 08:40 WBC RBC Hgb Hct MCV MCH MCHC RDW RDW Differential Plt Count MPV Immature Gran % (Auto) Neut % (Auto) Lymph % (Auto) [place] % (Auto) Eos % (Auto) Baso % (Auto) Absolute Neuts (auto) Absolute Lymphs (auto) Total Counted PT INR APTT Sodium Potassium Chloride Carbon Dioxide Anion Gap BUN Creatinine Estim Creat Clear Calc Est GFR (MDRD) Af Amer Est GFR (MDRD) Non-Af BUN/Creatinine Ratio Glucose Lactic Acid Calcium Total Bilirubin 0.60 Direct Bilirubin 0.14 AST 14 L ALT 21 Alkaline Phosphatase 37 L Total Protein 6.7 Albumin 3.3 Globulin 3.4 MRSA (PCR) Negative Assessment/Plan All Active Problems Peritonsillar abscess (Acute) Sepsis (Acute) 43 year old female with acute right peritonsillar abscess with supraglottic edema -likely self-ruptured her abscess given her history of acute foul taste and relief of odynophagia. pharyngeal exam normal today -laryngoscopy with slight erythema of the epiglottis, glottis crisp. -discussed IV antibiotics for another 24 hours - may be discharged home tomorrow on oral antibiotics unless clinically worsens.
--- NOTE | 2018-07-14 12:05 | PCM.OPRPT ---
Problem List (1) Peritonsillar abscess Status: Acute Report of Operation Date of Procedure: 07/14/18 Pre-Operative Diagnosis: supraglottitis Post-Operative Diagnosis: supraglottitis Surgery/Procedure Performed:: flexible laryngoscopy Type of Anesthesia:: Local Description of Procedure: on the day of the procedure, the patient's nasal cavities were decongested with oxymetazoline/lidocaine. given her small nasal airway, the flexible laryngoscope was introduced transorally with the patient protruding the tongue and elevating the soft palate. there was no distinct asymmetry. the epiglottis was erythematous with no significant edema. the glottis was crisp and the cords were mobile bilaterally. the airway was widely patent. there were no masses or mucosal irregularities.
--- NOTE | 2018-07-14 12:09 | CASEMGMT ---
RN CM Assessment Presentation: Peritonsillar abscess, acute sepsis. Intro role of CM and purpose of RN CM assessment to patient in room. She is awake, alert and able to participate in assessment. Demographics, PCP and Pharmacy verified. PCP: No PCP. PCP list given to patient, process explained to either contact her insurance or call to office to verify [facility] with physicians. Specialists: Dr. Gifford Preferred Pharmacy: [facility]. Entered in chart Insurance: [place] Prescription Benefit: yes LNOK: Chaparrita Crandall, daughter Living Arrangements: lives independently. Denies needing assist in ADLs. Transportation: drives DME: none HHC: none Patient DC goals:Home DC PLAN: anticipate home on dc, po antibiotics, can f/u with Dr. Gifford after this admission. Chato MONTIELN RN ACM
[2018-07-14] MEDS: Famotidine 20 MG Tablet PO ×2 (12:52→21:12)
[2018-07-14] MEDS: Ibuprofen 100 MG/5 ML UDC 600 MG PO ×2 (12:53→21:11)
[2018-07-14] MEDS: Amox/Clav 400mg/5ml Susp 500 MG PO ×2 (13:16→21:22)
--- NOTE | 2018-07-14 16:00 | NURSING ---
Care assumed at this time from Collins Lowery Rn.
[2018-07-14] MEDS: MELATONIN 3 MG TABLET PO (22:52)
[2018-07-15 04:14] VITALS: BP 108/79; PULSE 94; RESP 16; TEMP 37.3; O2SAT 98
[2018-07-15] MEDS: 0.9% NaCl Peripheral Flush Adult/Peds IV (05:13)
[2018-07-15] MEDS: Ibuprofen 100 MG/5 ML UDC 600 MG PO (05:18)
[2018-07-15] MEDS: Amox/Clav 400mg/5ml Susp 500 MG PO (05:19)
[2018-07-15 07:53] VITALS: O2SAT 96
[2018-07-15 08:09] LABS: Hematocrit 36.2 % (37-47); Hemoglobin 11.8 g/dl (12.0-15.0); Mean Corp Hgb Conc 32.6 g/gl (32-36); Mean Corpuscular Hgb 31.1 pg (27.0-32.0); Mean Corpuscular Volume 95.3 fL (81-99); Mean Platelet Vol. 10.5 fl (6.2-12.0); Platelet Count 250 K/mm3 (150-450); RBC Distribution Width CV 12.8 % (11.6-14.6); RBC Distribution Width SD 42.8 fl (35.1-43.9); White Blood Count 24.3 K/mm3 (4.4-11.0)
[2018-07-15 08:11] LABS: Scan Indicated on CBC? Y/N NO
[2018-07-15] MEDS: Famotidine 20 MG Tablet PO (08:17)
[2018-07-15 08:35] LABS: BUN 17 mg/dL (7-18); Calcium,Total 8.6 mg/dL (8.5-10.1); Creatinine, Serum 0.68 mg/dL (0.55-1.02); EST Glomerular Filtration Rate 99 mL/min (>60); Est Glom Filt Rate - Afr Amer 120 mL/min (>60); Estimated Creatinine Clearance 106.22 ml/min; Glucose 150 mg/dL (74-106)
[2018-07-15 08:36] LABS: Anion Gap 7 (5-15); Chloride 109 mmol/L (98-107); Potassium 4.2 mmol/L (3.5-5.1); Sodium Level 142 mmol/L (136-145)
[2018-07-15 10:00] VITALS: BP 139/65; PULSE 81; RESP 14; TEMP 36.7; O2SAT 97
--- NOTE | 2018-07-15 11:13 | PCM.PN.SRG ---
Patient Problems: Active and Suspected Problems Peritonsillar abscess (Acute) Sepsis (Acute) Subjective: feels well - Physical Exam General: Alert, Oriented x3, Cooperative Oral: - - normal exam Neck: Supple, No Nodes Lungs: - - no stridor Vital Signs Temp Pulse Resp BP Pulse Ox 98.0 F 81 14 139/65 H 97 07/15/18 10:00 07/15/18 10:00 07/15/18 10:00 07/15/18 10:00 07/15/18 10:00 Oxygen Delivery Method Room Air Weight: 64.4 kg Body Mass Index (BMI) 20.3 Intake and Output for Last 24 Hours 07/13/18 07/14/18 07/15/18 23:59 23:59 23:59 Intake Total 1810 / 1810 400 / 400 Output Total 1150 / 1150 Balance 660 / 660 400 / 400 Microbiology Past 72 Hours 07/14/18 23:00 Streptococcus pneumoniae Antigen (M - Final Urine, Random 07/14/18 09:55 Respiratory Panel (PCR) - Final Mucosa - Nasopharyngeal Laboratory Tests Past 24 Hrs 07/15/18 07/15/18 07:15 07:15 WBC 24.3 H RBC 3.80 L Hgb 11.8 L Hct 36.2 L MCV 95.3 MCH 31.1 MCHC 32.6 RDW 12.8 RDW Differential 42.8 Plt Count 250 MPV 10.5 Sodium 142 Potassium 4.2 Chloride 109 H Carbon Dioxide 26.0 Anion Gap 7 BUN 17 Creatinine 0.68 Estim Creat Clear Calc 106.22 Est GFR (MDRD) Af Amer 120 Est GFR (MDRD) Non-Af 99 BUN/Creatinine Ratio 25.0 H Glucose 150 H Calcium 8.6 Medical Necessity - Tobacco Use Smoking Status: Current every day smoker Tobacco Use: Cigarettes Assessment/Plan All Active Problems Peritonsillar abscess (Acute) Sepsis (Acute) 43 year old female admitted for a right peritonsillar abscess with subsequent ipsilateral supraglottic edema who had subsequent spontaneous drainage -patient feels normal today, no airway symptoms -pharynx normal -ok from ENT standpoint to be discharged on oral antibiotics. she knows to make a f/u appt with me in 3-4 wks at [facility].
--- NOTE | 2018-07-15 12:21 | NURSING ---
this RN made aware that pt left floor and was escorted by to pt room by security. made aware.
--- NOTE | 2018-07-15 12:32 | DCINST_ITS ---
- Discharge Diagnoses Current Active Problems: Current Active and Chronic Problems Peritonsillar abscess (Acute) Sepsis (Acute) Tobacco use (Chronic) You will use the following diet at home:: No restrictions Your food should be the consistency of: Mechanical soft (ground) Your liquids should be the consistency of: Regular/Thin Discharge Activity: Return to Normal Activity Call your doctor if you observe: Fever of 101 or Higher, Shortness of breath, Chest pain, Uncontrolled pain, - - Call your PCP if severe diarrhea ( > 5 stools a day), painful sores in the mouth, painful swallowing, rash or itching. Taking a probiotic such as Lactobacillus or Kefir can help with loose stools while taking antibiotics. If you develop vaginal discharge or vaginal itching you may have a yeast infection. You can purchase Monostat or a similar product at the local pharmacy or call your PCP for a prescription. Additional Instructions: Follow up with Dr. Ly in 3-4 weeks. Allergies/Adverse Reactions: Allergies No Known Allergies Allergy (Verified 07/13/18 19:48) Medications to take at Discharge Amox/Clavulanate Tablet [Augmentin Tablet] 875 mg PO Q12H #16 tablet 07/15/18 The following prescriptions were given: Amox/Clavulanate Tablet [Augmentin Tablet] 875 mg PO Q12H #16 tablet Primary Care Physician: Care Physician,No Primary [Primary Care Provider] - Test Results: Test results from this visit will be discussed in further detail at your follow- up appointment, if applicable. Please Follow Up With: Brad Ly MD When: 3-4 weeks Proposed Discharge Date: 07/15/18
--- NOTE | 2018-07-15 12:32 | PCM.DC.SUM ---
Discharge Date and Diagnosis Date of Admission: 07/13/18 Date of Discharge: 07/15/18 - Primary Discharge Diagnosis Active and Suspected Problems Peritonsillar abscess (Acute) Sepsis (Acute) - Secondary Discharge Diagnosis Chronic Problems Tobacco use (Chronic) Hospital Course and Treatment Imaging Results: Clinical Impression(s) from Imaging Studies Soft Tissue Neck CT 07/13/18 21:10 IMPRESSION: Marked soft tissue swelling extending from the right tonsil downward to the right false cord with enlargement of the epiglottis and narrowing of both the pharynx and hypopharynx. There are several low-attenuation foci within this area of swelling suggesting focal abscesses. N.B. : The above information has been verbally conveyed by Hayden Howard DO to Eder Mc on 07/13/2018 22:45:31 (ET). Electronically Signed: Hayden Howard DO at 22:46 EDT Tel [phone], Service support , ADDENDUM: 07/13/18 2253 IMPRESSION: Marked soft tissue swelling extending from the right tonsil downward to the right false cord with enlargement of the epiglottis and narrowing of both the pharynx and hypopharynx. There are several low-attenuation foci within this area of swelling suggesting focal abscesses. N.B. : The above information has been verbally conveyed by Hayden Howard DO to Eder Mc on 07/13/2018 22:45:31 (ET). Electronically Signed: Hayden Howard DO at 22:46 EDT Tel [phone], Service support , Laboratory Results - last 24 hr 07/15/18 07/15/18 07:15 07:15 WBC 24.3 H RBC 3.80 L Hgb 11.8 L Hct 36.2 L MCV 95.3 MCH 31.1 MCHC 32.6 RDW 12.8 RDW Differential 42.8 Plt Count 250 MPV 10.5 Sodium 142 Potassium 4.2 Chloride 109 H Carbon Dioxide 26.0 Anion Gap 7 BUN 17 Creatinine 0.68 Estim Creat Clear Calc 106.22 Est GFR (MDRD) Af Amer 120 Est GFR (MDRD) Non-Af 99 BUN/Creatinine Ratio 25.0 H Glucose 150 H Calcium 8.6 Microbiology 07/14/18 23:00 Urine, Random Streptococcus pneumoniae Antigen (M - Final 07/14/18 09:55 Mucosa - Nasopharyngeal Respiratory Panel (PCR) - Final Dr. Reg Ly - ENT Operations: None Procedures: - - Flexible laryngoscopy by Dr. Gifford on 07/14/2018. Summary of Care Provided: The patient is a 43-year-old female with a past medical history of tobacco dependence who presented to the emergency department at [facility] on 07/13/2018 complaining of a 48-hour history of worsening sore throat, dysphagia, myalgias, fevers, chills and poor appetite. She went to an urgent care and was advised to go to the emergency department due to concern for possible tonsillitis. Vital signs in the emergency department were temperature 98 ?F, pulse rate 128, blood pressure 161/91, respiratory rate 19 and she was 95-98% saturated on room air. White blood cell count was elevated at 19.6 with a left shift. BMP was unremarkable. PT and PTT were within normal limits. Lactic acid was 0.7. A CT scan of the soft tissues of the neck showed marked soft tissue swelling extending from the right tonsil downward to the right false vocal cord with enlargement of the epiglottis and narrowing of both the pharynx and hypopharynx. There were several low-attenuation foci within the area suggesting focal abscesses. She received Unasyn, Decadron and IV fluids in the emergency department and consultation was ordered with Dr. Ly. She was admitted to the ICU and was continued on Decadron and Unasyn. Vanco was added to the drug regimen but, discontinued when the MRSA nasal swab was negative. the following morning she stated that she felt something pop in her throat the preceding night and then she had a very foul taste. She denies shortness of breath and had no drooling. He was seen by Dr. Gifford who performed a laryngoscopy and the airway was wide open. She was transitioned to Augmentin suspension and transferred to a medical surgical floor. The following morning she felt well and denied sore throat. She was afebrile and denied shortness of breath, cough, difficulty swallowing. He was discharged home on Augmentin and will follow up with Dr. Gifford in the office in 3-4 weeks. She will take Motrin or Naprosyn for pain. PHYSICAL EXAM: GENERAL: alert, oriented X 3, Cooperative, NAD ORAL: dry mucosa, no mucosal lesions, positive erythema posterior pharynx with no exudate, knowing of the uvula, floor the mouth is soft, airway appears open NECK: No JVD, supple, trachea midline LUNGS: CTA, symmetric chest expansion, not tachypneic, no conversational dyspnea, no labored respirations, no wheezing, no rales HEART: RRR, Normal S1 and S2, no rub, no gallop, no murmur ABDOMEN: soft, NT, ND, BS present, no guarding with palpation EXTREMITIES: no edema, no cyanosis, no calf tenderness SKIN: No rashes, no breakdown NEUROLOGIC: no focal neurologic deficits PSYCH: appropriate, normal affect, pleasant This note was generated with [employer] dictation software. It may contain incorrect words, spelling, and punctuation that were not noted in checking the note before signing. - Physical Exam Vital Signs Temp Pulse Resp BP Pulse Ox 98.0 F 81 14 139/65 H 97 07/15/18 10:00 07/15/18 10:00 07/15/18 10:00 07/15/18 10:00 07/15/18 10:00 Oxygen Delivery Method Room Air Weight: 141 lb 15.643 oz Body Mass Index (BMI) 20.3 Intake and Output for Last 24 Hours 07/13/18 07/14/18 07/15/18 23:59 23:59 23:59 Intake Total 1810 / 1810 400 / 400 Output Total 1150 / 1150 Balance 660 / 660 400 / 400 Microbiology Past 72 Hours 07/14/18 23:00 Streptococcus pneumoniae Antigen (M - Final Urine, Random 07/14/18 09:55 Respiratory Panel (PCR) - Final Mucosa - Nasopharyngeal Laboratory Tests Past 24 Hrs 07/15/18 07/15/18 07:15 07:15 WBC 24.3 H RBC 3.80 L Hgb 11.8 L Hct 36.2 L MCV 95.3 MCH 31.1 MCHC 32.6 RDW 12.8 RDW Differential 42.8 Plt Count 250 MPV 10.5 Sodium 142 Potassium 4.2 Chloride 109 H Carbon Dioxide 26.0 Anion Gap 7 BUN 17 Creatinine 0.68 Estim Creat Clear Calc 106.22 Est GFR (MDRD) Af Amer 120 Est GFR (MDRD) Non-Af 99 BUN/Creatinine Ratio 25.0 H Glucose 150 H Calcium 8.6 Discharge Activity: Return to Normal Activity Call your doctor if you observe: Fever of 101 or Higher, Shortness of breath, Chest pain, Uncontrolled pain, - - Call your PCP if severe diarrhea ( > 5 stools a day), painful sores in the mouth, painful swallowing, rash or itching. Taking a probiotic such as Lactobacillus or Kefir can help with loose stools while taking antibiotics. If you develop vaginal discharge or vaginal itching you may have a yeast infection. You can purchase Monostat or a similar product at the local pharmacy or call your PCP for a prescription. Home Medications: Medications to take at Discharge Amox/Clavulanate Tablet [Augmentin Tablet] 875 mg PO Q12H #16 tablet 07/15/18 Following Prescrptions Were Given to Patient: Amox/Clavulanate Tablet [Augmentin Tablet] 875 mg PO Q12H #16 tablet Primary Care Physician: Care Physician,No Primary [Primary Care Provider] - Please Follow Up With: Brad Ly MD When: 3-4 weeks Disposition: Home Minutes spent on discharge:: 30 Patient Condition:: Good Medical Necessity - Tobacco Use Smoking Status: Current every day smoker Tobacco Use: Cigarettes Meaningful Use Info Meaningful Use Diagnoses (Choose all that apply): None applicable Code Visit Inpatient E&M: 08757 Disch Hosp
== END 2018-07-15 13:04 | disposition home or self-care (01) | DRG 872 ==
LOC: ED 07-14 00:07 → ICU 07-14 00:25 → MS3 07-17 07:09
PROVIDERS: Admitting Provider Family Medicine; Emergency Provider Emergency Medicine; Visit Provider Internal Medicine
DX: A41.9 Sepsis, unspecified organism (principal); J36 Peritonsillar abscess; J38.4 Edema of larynx; J04.30 Supraglottitis, unspecified, without obstruction; F17.210 Nicotine dependence, cigarettes, uncomplicated
CPT/HCPCS: 36415; 70491; 80048; 80076; 83605; 85025; 85027; 85610; 85730; 87040; 87449; 87633; 87641; 99283; 99406; J7030; Q9967; A4216; J0295; J3490; J7799